=== PATIENT | male | born 1995 | race Caucasian/White ===

== ENCOUNTER 2016-09-16 04:31 | Emergency (ER) ==
[2016-09-16] MEDS ORDERED: XYLOCAINE 1% INJ ONE (04:38)
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
[2016-09-16] MEDS ORDERED: MOTRIN PO ONE (05:24)
[2016-09-16 06:20] VITALS: BP 133/77
--- NOTE | 2016-09-16 07:46 | Diag Imaging Result Document ---
PROCEDURE NAME: FOREARM-LEFT - 09/16/2016 X-RAY LEFT FOREARM 2 VIEWS, 09/16/2016: COMPARISON: None. FINDINGS: There is focal soft-tissue swelling at the distal radial forearm. No fracture or dislocation. Joint spaces are clear. IMPRESSION: Soft-tissue contusion but no fracture.
== END 2016-09-16 06:30 | disposition home or self-care (01) ==
LOC: ED 04:31
DX: F19.10 Other psychoactive substance abuse, uncomplicated (principal); S50.12XA Contusion of left forearm, initial encounter; S41.011A Laceration without foreign body of right shoulder, initial encounter